=== PATIENT | male | born 1990 | race Caucasian/White ===

== ENCOUNTER 2017-08-18 00:32 | Emergency (ER) | payer OTHER ==
[~2017-08-18] VITALS: Ht 198.1 cm; Wt 101.9 kg
[2017-08-18 00:41] VITALS: Ht 198.1 cm; Wt 101.9 kg
[2017-08-18] MEDS ORDERED: LORAZEPAM 2 MG/ML 1 ML VIAL IV STA (00:50)
[2017-08-18] MEDS ORDERED: KETOROLAC TROMETHAMINE 30 MG/ML VIAL IV STA (00:50)
[2017-08-18] MEDS ORDERED: ACETAMINOPHEN IV 1,000 MG in EMPTY BAG 0 ML IV ONE (01:00)
[2017-08-18] MEDS ORDERED: SODIUM CHLORIDE 0.9% 1000ML 1,000 ML, SODIUM CHLORIDE 0.9% 1000ML 1,000 ML IV ONE (01:00)
[2017-08-18] MEDS ORDERED: ACETAMINOPHEN 1000 MG/100 ML IV IV ONE (01:03)
[2017-08-18 01:09] VITALS: O2SAT 98
[2017-08-18 01:24] LABS: BASO % 0.7 %; BASO ABS # 0.05 K/uL (0-0.2); EOS % 5.1 %; EOS ABS # 0.38 K/uL (0-0.5); HEMATOCRIT 45.9 % (42-52); HEMOGLOBIN 15.6 g/dL (14.0-18.0); IG# 0.04 K/uL (0.00-0.02); LYMPH % 19.1 %; LYMPH ABS # 1.44 K/uL (1.2-3.4); MEAN CELL VOLUME 91.3 fL (80-100); MEAN PLATELET VOLUME 10.9 fL (7.4-10.4); MONO % 8.8 %; MONO ABS # 0.66 K/uL (0.11-0.59); NEUT % 65.8 %; NEUT ABS # 4.95 K/uL (1.4-6.5); PLATELET COUNT 181 K/uL (130-400); RED CELL DISTRIBUTION WIDTH CV 13.3 % (11.5-14.5); RED CELL DISTRIBUTION WIDTH SD 43.9 fL (36.4-46.3); WHITE BLOOD COUNT 7.52 K/uL (4.8-10.8)
[2017-08-18 01:47] LABS: ALBUMIN 3.8 gm/dl (3.4-5.0); CALCIUM 8.4 mg/dl (8.5-10.1); CREATININE 1.02 mg/dl (0.60-1.40)
[2017-08-18 02:08] LABS: INFLUENZA B ANTIGEN Neg for Influ B (NEG)
[2017-08-18 03:01] VITALS: TEMP 36.3
--- NOTE | 2017-08-18 06:16 | EMERGENCY ROOM VISIT NOTE ---
History First contact with patient: 00:33 Chief Complaint: OTHER COMPLAINT Stated Complaint: WITHDRAWL History of Present Illness The patient is a 27 year old male who presents to the Emergency Room for medical clearance so that he may go to an alcohol detox clinic. The patient evidently contacted [facility]ane who referred him to the emergency department for medical clearance. The patient states that he drinks large amounts of alcohol, often 2-3 bottles of hard liquor daily. His last drink was 3 days ago. He has not had signs of withdrawal and has gone to rehabilitation in the past. The patient does have a fever, and does report some flulike symptoms for the past 3 or 4 days. Patient is considered otherwise usually healthy. He is currently living in a homeless detention. He rates his overall discomfort a 1/10. He denies drug use. He does not of other complaints. Review of Systems More than 10 systems were reviewed and otherwise negative with the exception of history of present illness. Past Medical/Surgical History History of alcohol abuse Family History No pertinent family history Social History Smoking Status: Current Every Day Smoker Alcohol Use: heavy Housing Status: other Current/Historical Medications No Active Prescriptions or Reported Meds Physical Exam Vital Signs Date Time Temp Pulse Resp B/P (MAP) Pulse Ox O2 Delivery O2 Flow Rate FiO2 08/18/17 09:05 76 16 130/82 98 Room Air 08/18/17 07:11 56 14 117/55 93 Room Air 08/18/17 06:33 52 16 118/65 94 Room Air 08/18/17 04:20 61 16 106/64 92 Room Air 08/18/17 04:08 60 08/18/17 03:01 36.3 67 17 124/62 93 Room Air 08/18/17 02:05 80 16 123/63 93 Room Air 08/18/17 01:09 98 Room Air 08/18/17 00:41 38.5 95 20 143/74 91 Room Air 08/18/17 00:40 92 Physical Exam VITALS: Vitals are noted on the nurse's note and reviewed by myself. Vital signs with low-grade fever GENERAL: Well-developed, well-nourished, white male, who is in no acute distress and resting comfortably. Patient is cooperative with the examination. HEAD: Normocephalic atraumatic. EARS: External ear normal. External auditory canals clear, tympanic membranes pearly fox without erythema or effusion bilaterally. EYES: Pupils equal round and reactive to light and accommodation. Conjunctivae without injection, sclerae without icterus. Extraocular movements intact. NOSE: Patent, turbinates without inflammation or discharge. MOUTH: Mucous membranes moist. Tonsils are not enlarged. Pharynx without erythema, blood, or exudate. Uvula midline. Airway patent. NECK: Supple without nuchal rigidity. No lymphadenopathy. No thyromegaly. Cervical spine is nontender. HEART: Regular rate and rhythm without murmurs gallops or rubs. LUNGS: Clear to auscultation bilaterally without wheezes, rales or rhonchi. No retractions or accessory muscle use. ABDOMEN: Positive normal bowel sounds x 4. Soft, nontender, without masses or organomegaly. No guarding or rebound tenderness. MUSCULOSKELETAL: No muscle atrophy, erythema, or edema noted. Full range of motion without joint tenderness in all extremities. No tenderness to palpation. Normal gait. Strength 5/5 throughout. NEURO: Patient was alert and oriented to person place and time. CN II through XII grossly intact. Deep tendon reflexes 2+ throughout. No focal neurological deficits SKIN: The skin was without rashes, erythema, edema, or bruising. Capillary reflex less than 2 seconds. Medical Decision & Procedures Laboratory Results 08/18/17 01:10 Red Blood Count 5.03, Mean Corpuscular Volume 91.3, Mean Corpuscular Hemoglobin 31.0, Mean Corpuscular Hemoglobin Concent 34.0, Mean Platelet Volume 10.9, Neutrophils (%) (Auto) 65.8, Lymphocytes (%) (Auto) 19.1, Monocytes (%) (Auto) 8.8, Eosinophils (%) (Auto) 5.1, Basophils (%) (Auto) 0.7, Neutrophils # (Auto) 4.95, Lymphocytes # (Auto) 1.44, Monocytes # (Auto) 0.66, Eosinophils # (Auto) 0.38, Basophils # (Auto) 0.05 08/18/17 01:10 Test 08/18/17 01:10 08/18/17 01:14 08/18/17 01:18 08/18/17 01:19 White Blood Count 7.52 K/uL (4.8-10.8) Red Blood Count 5.03 M/uL (4.7-6.1) Hemoglobin 15.6 g/dL (14.0-18.0) Hematocrit 45.9 % (42-52) Mean Corpuscular Volume 91.3 fL (80-100) Mean Corpuscular Hemoglobin 31.0 pg (25-34) Mean Corpuscular Hemoglobin Concent 34.0 g/dl (32-36) Platelet Count 181 K/uL (130-400) Mean Platelet Volume 10.9 fL (7.4-10.4) Neutrophils (%) (Auto) 65.8 % Lymphocytes (%) (Auto) 19.1 % Monocytes (%) (Auto) 8.8 % Eosinophils (%) (Auto) 5.1 % Basophils (%) (Auto) 0.7 % Neutrophils # (Auto) 4.95 K/uL (1.4-6.5) Lymphocytes # (Auto) 1.44 K/uL (1.2-3.4) Monocytes # (Auto) 0.66 K/uL (0.11-0.59) Eosinophils # (Auto) 0.38 K/uL (0-0.5) Basophils # (Auto) 0.05 K/uL (0-0.2) RDW Standard Deviation 43.9 fL (36.4-46.3) RDW Coefficient of Variation 13.3 % (11.5-14.5) Immature Granulocyte % (Auto) 0.5 % Immature Granulocyte # (Auto) 0.04 K/uL (0.00-0.02) Anion Gap 5.0 mmol/L (3-11) Est Creatinine Clear Calc Drug Dose 140.6 ml/min Estimated GFR () 116.2 Estimated GFR (Non- 100.3 BUN/Creatinine Ratio 15.8 (10-20) Calcium Level 8.4 mg/dl (8.5-10.1) Magnesium Level 1.7 mg/dl (1.8-2.4) Total Bilirubin 0.3 mg/dl (0.2-1) Aspartate Amino Transf (AST/SGOT) 117 U/L (15-37) Alanine Aminotransferase (ALT/SGPT) 347 U/L (12-78) Alkaline Phosphatase 70 U/L (45-117) Total Protein 7.0 gm/dl (6.4-8.2) Albumin 3.8 gm/dl (3.4-5.0) Globulin 3.2 gm/dl (2.5-4.0) Albumin/Globulin Ratio 1.2 (0.9-2) Lipase 217 U/L (73-393) Thyroid Stimulating Hormone (TSH) 1.850 uIu/ml (0.300-4.500) Chemistry Specimen Hemolysis Salicylates Level < 1.7 mg/dl (2.8-20) Acetaminophen Level < 2 ug/ml (10-30) Ethyl Alcohol mg/dL < 3.0 mg/dl (0-3) Bedside Lactic Acid Venous 0.66 mmol/L (0.90-1.70) Bedside Troponin I < 0.030 ng/ml (0-0.045) Test 08/18/17 01:20 08/18/17 01:35 Influenza Type A Antigen Neg for Influ A (NEG) Influenza Type B Antigen Neg for Influ B (NEG) Urine Color YELLOW Urine Appearance CLEAR (CLEAR) Urine pH 6.0 (4.5-7.5) Urine Specific [place] 1.022 (1.000-1.030) Urine Protein NEG (NEG) Urine Glucose (UA) NEG (NEG) Urine Ketones NEG (NEG) Urine Occult Blood NEG (NEG) Urine Nitrite NEG (NEG) Urine Bilirubin NEG (NEG) Urine Urobilinogen NEG (NEG) Urine Leukocyte Esterase NEG (NEG) Urine Opiates Screen NEG (NEG) Urine Methadone, Qualitative NEG (NEG) Urine Barbiturates NEG (NEG) Urine Phencyclidine (PCP) Level NEG (NEG) Ur Amphetamine/Methamphetamine NEG (NEG) MDMA (Ecstasy) Screen NEG (NEG) Urine Benzodiazepines Screen NEG (NEG) Urine Cocaine Metabolite NEG (NEG) Urine Marijuana (THC) NEG (NEG) Medications Administered Medications (Trade) Dose Ordered Sig/Swati Route Start Time Stop Time Status Last Admin Dose Admin Sodium Chloride/ Sodium Chloride 2,000 ml @ 999 mls/hr Q2H1M ONCE IV 08/18/17 01:00 08/18/17 03:00 DC 08/18/17 01:00 999 MLS/HR Ketorolac Tromethamine (Toradol Inj) 30 mg NOW STAT IV 08/18/17 00:50 08/18/17 00:53 DC 08/18/17 01:14 30 MG Lorazepam (Ativan Inj) 0.5 mg NOW STAT IV 08/18/17 00:50 08/18/17 00:53 DC 08/18/17 01:14 0.5 MG Acetaminophen (Ofirmev Iv) 1,000 mg STK-MED ONCE IV 08/18/17 01:03 08/18/17 01:04 DC 08/18/17 01:28 1,000 MG ED Course Physical exam and history were performed. Nursing notes, EMR, and Medication List were personally reviewed. Patient appears to have a need for alcohol addiction rehabilitation services. The patient does not appear to be in DTs and answers questions appropriately. He does have a low-grade fever which may represent a viral illness. He will need medical clearance. IV access was established and labs were obtained. The patient was hydrated with normal saline and given IV Toradol, IV Tylenol, and IV Ativan. X-ray was performed. The patient's blood work is as above and was reviewed. He does not have a significantly elevated white blood cell count, gross anemia, bandemia, or significant electrolyte imbalance. His transaminases are elevated, however this is felt to be secondary to the alcohol dependence. His drug of abuse screen is negative. He does not have alcohol on board. Once the screen was negative. X-ray does not show acute process. Salicylates and Tylenol were 0. His temperature did normalize after antipyretics. Overall the patient is felt to be medically cleared for rehabilitation. I did discuss the case with both case management and the [facility] liaison. Evidently the patient is currently homeless but does have some level of insurance. [facility] attempted to make a referral by telephone, but was not successful in placement. The plan at this time is for case management to assist in making appropriate referral for the patient. They will also help in disposition from the department. The patient is pleased with this plan and voiced understanding. Please see case management notes for final disposition. The chart was completed utilizing [employer] Speech Voice Recognition Software. Grammatical errors, random word insertions, pronoun errors, and incomplete sentences are an occasional consequence of this system due to software limitations, ambient noise, and hardware issues. Any formal questions or concerns about the content, text, or information contained within the body of this dictation should be directly addressed to the provider for clarification. . Medical Decision Differential diagnosis: Etiologies such as alcohol intoxication, alcohol addiction, viral infection, influenza, drug abuse, mental health disease, toxicologic, infection, hypoglycemia, electrolyte abnormalities, cardiac sources, intracerebral event, neurologic, as well as others were entertained. Impression Primary Impression: Alcohol addiction Additional Impression: Flu-like symptoms Departure Information Prescriptions No Active Prescriptions or Reported Meds Referrals No Doctor, Assigned (PCP) Patient Instructions My [facility] Problem Qualifiers
--- NOTE | 2017-08-18 07:57 | DIAGNOSTIC IMAGING REPORT ---
CHEST ONE VIEW PORTABLE HISTORY: fever, cough, flu like COMPARISON: None. FINDINGS: There are low lung volumes. The heart is normal in size. No pleural effusions. No pneumothorax. There is perihilar interstitial thickening. No focal lung consolidations. IMPRESSION: Bilateral perihilar interstitial thickening suggestive of a reactive airways disease/viral process. No focal lung consolidations. Electronically signed by: Ronny Rose M.D. 08/18/2017 7:56 AM Dictated Date/Time: 08/18/2017 7:56 AM
[2017-08-18 09:05] VITALS: BP 130/82; PULSE 76; O2SAT 98
== END 2017-08-18 09:33 | disposition home or self-care (01) ==
LOC: EDBD 00:32 → C.EDB 00:34
DX: F10.20 Alcohol dependence, uncomplicated (principal); J11.1 Influenza due to unidentified influenza virus with other respiratory manifestations; F17.200 Nicotine dependence, unspecified, uncomplicated